=== PATIENT | female | born 1980 | race Caucasian/White ===

== ENCOUNTER → 2024-09-05 | Outpatient (CLI) | payer OTHER, SELFPAY | END | disposition home or self-care (01) | LOC: PSN 09:29 | PROVIDERS: PCP Nurse Practitioner Family; Referring Provider Orthopaedic Surgery Sports Medicine; Visit Provider Orthopaedic Surgery Sports Medicine | DX: G56.01 Carpal tunnel syndrome, right upper limb (principal); M65.4 Radial styloid tenosynovitis [de Quervain] | CPT/HCPCS: 95886; 95910 ==